=== PATIENT | female | born 1965 | race Two or more races ===

== ENCOUNTER 2022-06-26 17:55 | Emergency (ER) | payer SELFPAY ==
[~2022-06-26] VITALS: Ht 165.1 cm; Wt 75.0 kg
[2022-06-26 18:20] VITALS: BP 113/76
== END 2022-06-26 22:43 | disposition left against medical advice (07) ==
LOC: ER 17:55
DX: R10.13 Epigastric pain (principal); R11.0 Nausea; Z53.21 Procedure and treatment not carried out due to patient leaving prior to being seen by health care provider
CPT/HCPCS: 93005